=== PATIENT | male | born 1965 | race African-American/Black ===

== ENCOUNTER → 2021-02-28 | Outpatient (CLI) | payer OTHER ==
--- NOTE | 2021-02-28 15:03 | RAD ---
EXAMINATION: XR KNEE_LT 1-2 VIEWS CLINICAL HISTORY: Left knee pain TECHNIQUE: XR KNEE_LT 1-2 VIEWS COMPARISON: None FINDINGS/ IMPRESSION: Mild tricompartmental degenerative changes, greatest in the medial compartment. No acute fracture. Sm all suprapatellar enthesophyte. No joint effusion. Electronically signed by: Ludwin Durant DO (02/28/2021 3:00 PM) [id number]
--- NOTE | 2021-02-28 15:06 | RAD ---
EXAMINATION: XR HIP (WITH OR WITHOUT PELVIS)LEFT 1 VIEW CLINICAL HISTORY: Left hip pain TECHNIQUE: XR HIP (WITH OR WITHOUT PELVIS)LEFT 1 VIEW COMPARISON: None FINDINGS/ IMPRESSION: Mild axial joint space narrowing in the left hip with small marginal osteophytes. Asymmetric bony pro minence along the left acetabulum superiorly, suggesting acetabular overcoverage. Degenerative change s in the right hip incompletely evaluated. Pubic symphysis and SI joints maintained. No acute fractur e. Vascular calcifications. Electronically signed by: Ludwin Durant DO (02/28/2021 3:04 PM) [id number]
== END ==
LOC: RAD 10:12
PROVIDERS: ATTEND Family Medicine
DX: M17.12 Unilateral primary osteoarthritis, left knee (principal); M16.12 Unilateral primary osteoarthritis, left hip; M25.752 Osteophyte, left hip; M76.892 Other specified enthesopathies of left lower limb, excluding foot; M25.852 Other specified joint disorders, left hip
CPT/HCPCS: 73501; 73560